=== PATIENT | female | born 1980 | race Caucasian/White ===

== ENCOUNTER 2024-10-08 21:03 | Emergency (ER) | payer MEDICAID, SELFPAY ==
[2024-10-08 21:12] VITALS: BP 151/98; PULSE 105; RESP 19; TEMP 36.8; O2SAT 97
[2024-10-08 21:17] VITALS: BMI 35.9
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
== END 2024-10-08 22:21 | disposition home or self-care (01) ==
LOC: SERX 21:56
PROVIDERS: Emergency Provider Emergency Medicine; PCP Family Medicine
DX: S46.911A Strain of unspecified muscle, fascia and tendon at shoulder and upper arm level, right arm, initial encounter (principal); V89.2XXA Person injured in unspecified motor-vehicle accident, traffic, initial encounter
CPT/HCPCS: 99281

== ENCOUNTER → 2024-12-05 | Outpatient (CLI) | payer MEDICAID, SELFPAY ==
--- NOTE | 2024-12-05 13:15 | XR_ITS ---
Examination: Breast ultrasound complete, bilateral Date and time of exam: December 05, 2024 1430 hours INDICATIONS: Bilateral breast pain months Technique: Real-time grayscale ultrasonographic imaging bilateral breasts, including all 4 quadrants as well as nipple retroareolar and axillary regions. Findings: Sonographic images right and left breast demonstrated no cystic or solid masses IMPRESSION: BI-RADS Category 1: Negative study
--- NOTE | 2024-12-05 14:15 | XR_ITS ---
Examination: Diagnostic digital mammography, bilateral Computer aided detection 3-D breast Tomosynthesis, bilateral Date and time of exam: December 05, 2024 1444 hours Compared to outside mammogram February 26, 2023 INDICATIONS: Bilateral breast pain years Technique: Nonmagnified MLO, CC views of the breasts to been obtained, reconstructed from 3-D Tomosynthesis images. R2 computer aided detection program utilized for evaluation of suspicious masses and/or abnormal calcifications. 3-D Tomosynthesis images obtained. Findings: Scattered areas of fibroglandular density 12 mm focal asymmetry upper outer right breast Benign calcifications Impression: BI-RADS Category 0: Need thecal need additional imaging evaluation 12 mm focal asymmetry upper outer right breast, recommend follow-up spot tomographic views
== END | disposition home or self-care (01) ==
LOC: CDIM 14:10
PROVIDERS: Referring Provider Family Medicine; Visit Provider Family Medicine
DX: N64.89 Other specified disorders of breast (principal)
CPT/HCPCS: 76641; 77062; 77066; G0279

== ENCOUNTER 2024-12-17 16:29 | Emergency (ER) | payer MEDICAID, SELFPAY ==
[2024-12-17 16:30] VITALS: BMI 36.5
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
--- NOTE | 2024-12-17 17:15 | PC.NURSE ---
[facility] OFFICER HERE TALKING WITH PT
[2024-12-17 17:48] VITALS: BP 137/83; PULSE 93; RESP 19; TEMP 37; O2SAT 99
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
== END 2024-12-17 20:07 | disposition home or self-care (01) ==
PROVIDERS: Emergency Provider Emergency Medicine; PCP Family Medicine
DX: S93.401A Sprain of unspecified ligament of right ankle, initial encounter (principal); S40.012A Contusion of left shoulder, initial encounter; S00.03XA Contusion of scalp, initial encounter; S00.83XA Contusion of other part of head, initial encounter; S99.911A Unspecified injury of right ankle, initial encounter; V89.2XXA Person injured in unspecified motor-vehicle accident, traffic, initial encounter
CPT/HCPCS: 70450; 73030; 73600; 99284